=== PATIENT | female | born 1955 | race Caucasian/White ===

== ENCOUNTER 2017-02-19 09:18 | Inpatient (IN) | payer OTHER ==
[~2017-02-19] VITALS: Ht 172.7 cm; Wt 64.7 kg
[2017-02-19] MEDS ORDERED: SODIUM CHLORIDE 0.9% 1,000 ML IV ONE (09:57)
[2017-02-19] MEDS ORDERED: ONDANSETRON 2MG/ML, 2ML IVPush ONE (10:00)
[2017-02-19] MEDS ORDERED: SODIUM CHLORIDE FLUSH 10ML SYR IVF ONE (10:00)
[2017-02-19] MEDS ORDERED: SODIUM CHLORIDE 0.9% 1,000ML IVBOLUS ONE (10:00)
[2017-02-19] MEDS ORDERED: ONDANSETRON 2MG/ML, 2ML ONE (10:19)
[2017-02-19 10:32] LABS: ASPARTATE AMINO TRANSFERASE 8 U/L (15-37); BLOOD UREA NITROGEN 26 mg/dL (7-18)
[2017-02-19] MEDS ORDERED: POTASSIUM CHLORIDE 40 MEQ in SODIUM CHLORIDE 0.9% 1,000 ML IV ONE (10:43)
[2017-02-19] MEDS ORDERED: NS + 40MEQ KCL 1,000 ML IV ONE (10:47)
[2017-02-19] MEDS ORDERED: POTASSIUM CHLORIDE 20 MEQ in SODIUM CHLORIDE 0.9% 1,000 ML IV ONE ×2 (12:44→15:00)
[2017-02-19] MEDS ORDERED: SODIUM CHLORIDE FLUSH 10ML SYR IVF PRN (13:00)
[2017-02-19] MEDS ORDERED: NS + 20MEQ KCL 1,000 ML IV ONE (13:32)
[2017-02-19] MEDS ORDERED: SODIUM CHLORIDE 0.9% 1,000 ML IV SCH (13:43)
[2017-02-19] MEDS ORDERED: PROMETHAZINE 25 MG/ML, 1ML IM PRN (14:00)
[2017-02-19] MEDS ORDERED: BISACODYL 10 MG SUPP PR PRN (14:00)
[2017-02-19] MEDS ORDERED: DOCUSATE 100 MG CAPSULE PO PRN (14:00)
[2017-02-19] MEDS ORDERED: POLYETHYLENE GLYCOL 17 GM PACKET PO PRN (14:00)
[2017-02-19 15:22] LABS: BLOOD UREA NITROGEN 22 mg/dL (7-18)
[2017-02-19 15:47] VITALS: BP 123/88
[2017-02-19] MEDS ORDERED: POTASSIUM CHLORIDE 20 MEQ TAB.ER.PRT PO ONE (16:30)
[2017-02-19] MEDS: ENOXAPARIN 40 MG/0.4 ML SQ SCH (17:03)
[2017-02-19] MEDS: CEFTRIAXONE PMX 1GM/50ML 50 ML IV SCH (17:46)
[2017-02-19] MEDS: ROPINIROLE 1MG TABLET PO PRN (17:47)
[2017-02-19 20:35] VITALS: BP 137/85
[2017-02-19] MEDS: TRAZODONE 100MG TABLET PO PRN (21:47)
[2017-02-19] MEDS: ONDANSETRON 2MG/ML, 2ML IVPush PRN (22:10)
[2017-02-20] VITALS (7 sets, daily range): BP systolic 147–177; BP diastolic 79–101
[2017-02-20] MEDS: NS + 20MEQ KCL 1,000 ML IV SCH ×2 (00:46→09:44)
[2017-02-20] MEDS: ONDANSETRON 2MG/ML, 2ML IVPush PRN ×2 (05:59→17:56)
[2017-02-20 06:25] LABS: BLOOD UREA NITROGEN 17 mg/dL (7-18)
[2017-02-20] MEDS: SODIUM CHLORIDE 0.9% 1,000 ML IV SCH ×2 (13:30→23:30)
[2017-02-20] MEDS ORDERED: SODIUM PHOSPHATE 20 MMOL in SODIUM CHLORIDE 0.9% 500 ML IV ONE (14:00)
[2017-02-20] MEDS: ENOXAPARIN 40 MG/0.4 ML SQ SCH (14:17)
[2017-02-20] MEDS: CEFTRIAXONE PMX 1GM/50ML 50 ML IV SCH (14:26)
[2017-02-20] MEDS: ROPINIROLE 1MG TABLET PO PRN (16:30)
[2017-02-20] MEDS: ACETAMINOPHEN 325 MG TABLET PO PRN (17:58)
[2017-02-20] MEDS ORDERED: hydrALAzine 20 MG/ML, 1ML IV ONE (20:30)
[2017-02-20] MEDS ORDERED: ENALAPRILAT 1.25 MG/ML, 2ML IV ONE (23:30)
[2017-02-21 00:01] VITALS: BP 157/87
[2017-02-21] MEDS: TRAZODONE 100MG TABLET PO PRN ×2 (01:28→20:16)
[2017-02-21] MEDS: ACETAMINOPHEN 325 MG TABLET PO PRN (01:29)
[2017-02-21 04:22] VITALS: BP 152/78
[2017-02-21 05:09] LABS: BLOOD UREA NITROGEN 8 mg/dL (7-18)
[2017-02-21 07:24] VITALS: BP 118/80
[2017-02-21] MEDS ORDERED: POTASSIUM CHLORIDE 20 MEQ TAB.ER.PRT PO ONE (10:30)
[2017-02-21] MEDS: ONDANSETRON 2MG/ML, 2ML IVPush PRN ×2 (11:47→20:16)
[2017-02-21 13:23] VITALS: BP 152/88
[2017-02-21] MEDS: CEFTRIAXONE PMX 1GM/50ML 50 ML IV SCH (14:30)
[2017-02-21] MEDS: ENOXAPARIN 40 MG/0.4 ML SQ SCH (14:45)
[2017-02-21] MEDS: SODIUM CHLORIDE 0.9% 1,000 ML IV SCH (16:04)
[2017-02-21] MEDS: ROPINIROLE 1MG TABLET PO PRN (17:32)
[2017-02-21 19:11] VITALS: BP 160/91
[2017-02-21 20:59] VITALS: BP 124/86
[2017-02-22] VITALS (9 sets, daily range): BP systolic 146–177; BP diastolic 81–98
[2017-02-22] MEDS: SODIUM CHLORIDE 0.9% 1,000 ML IV SCH (03:26)
[2017-02-22] MEDS ORDERED: POTASSIUM CHLORIDE 20 MEQ TAB.ER.PRT PO ONE (09:00)
[2017-02-22] MEDS: POTASSIUM CHLORIDE 10 MEQ in SODIUM CHLORIDE 0.9% 1,000 ML IV SCH ×2 (12:28→22:42)
[2017-02-22] MEDS: ROPINIROLE 1MG TABLET PO PRN (16:15)
[2017-02-22] MEDS: ENOXAPARIN 40 MG/0.4 ML SQ SCH (16:15)
[2017-02-22] MEDS: ONDANSETRON 2MG/ML, 2ML IVPush PRN (17:32)
[2017-02-22] MEDS: ACETAMINOPHEN 325 MG TABLET PO PRN (19:46)
[2017-02-22] MEDS: TRAZODONE 100MG TABLET PO PRN (19:46)
[2017-02-22] MEDS: DIPHENHYDRAMINE 50 MG CAPSULE PO PRN (19:46)
[2017-02-22] MEDS ORDERED: ENALAPRILAT 1.25 MG/ML, 2ML IV PRN ×2 (22:00→23:30)
[2017-02-22] MEDS ORDERED: ENALAPRILAT 1.25 MG/ML, 2ML IV ONE (23:30)
[2017-02-23 03:06] VITALS: BP 146/85
[2017-02-23 03:34] VITALS: BP 134/87
[2017-02-23 06:23] LABS: BLOOD UREA NITROGEN 13 mg/dL (7-18)
[2017-02-23] MEDS: METRONIDAZOLE PMX 500MG/100ML 100 ML IV SCH ×2 (08:47→15:43)
[2017-02-23 08:51] VITALS: BP 149/82
[2017-02-23] MEDS: ENOXAPARIN 40 MG/0.4 ML SQ SCH (15:43)
[2017-02-23 15:54] VITALS: BP 138/76
[2017-02-23 17:13] VITALS: BP 117/78
[2017-02-23 19:50] VITALS: BP 130/85
[2017-02-23] MEDS: ROPINIROLE 1MG TABLET PO PRN (21:09)
[2017-02-23] MEDS: TRAZODONE 100MG TABLET PO PRN (21:09)
[2017-02-23] MEDS: DIPHENHYDRAMINE 50 MG CAPSULE PO PRN (21:09)
[2017-02-23] MEDS: ONDANSETRON 2MG/ML, 2ML IVPush PRN (21:10)
[2017-02-24] MEDS: METRONIDAZOLE PMX 500MG/100ML 100 ML IV SCH ×3 (00:16→17:33)
[2017-02-24 04:28] VITALS: BP 128/82
[2017-02-24 06:02] LABS: BLOOD UREA NITROGEN 11 mg/dL (7-18)
[2017-02-24 08:10] VITALS: BP 105/72
[2017-02-24] MEDS: LACTOBACILLUS CHEW TABLET PO SCH ×3 (13:04→19:52)
[2017-02-24] MEDS: VANCOMYCIN 50 MG/ML ORAL SUSP PO SCH ×2 (13:05→17:33)
[2017-02-24 13:54] VITALS: BP 108/59
[2017-02-24] MEDS: ENOXAPARIN 40 MG/0.4 ML SQ SCH (15:31)
[2017-02-24] MEDS: CHOLESTYRAMINE LIGHT 4GM PACKET PO SCH (15:31)
[2017-02-24] MEDS: ACETAMINOPHEN 325 MG TABLET PO PRN (15:46)
[2017-02-24 20:00] VITALS: BP 108/64
[2017-02-24] MEDS: TRAZODONE 100MG TABLET PO PRN (21:12)
[2017-02-24] MEDS: ROPINIROLE 1MG TABLET PO PRN (21:36)
[2017-02-25] MEDS: VANCOMYCIN 50 MG/ML ORAL SUSP PO SCH ×4 (00:55→17:26)
[2017-02-25] MEDS: METRONIDAZOLE PMX 500MG/100ML 100 ML IV SCH ×3 (01:58→17:24)
[2017-02-25 02:00] VITALS: BP 123/65
[2017-02-25 06:27] LABS: BLOOD UREA NITROGEN 12 mg/dL (7-18)
[2017-02-25 07:48] VITALS: BP 122/81
[2017-02-25] MEDS: LACTOBACILLUS CHEW TABLET PO SCH ×3 (08:37→20:49)
[2017-02-25] MEDS: CHOLESTYRAMINE LIGHT 4GM PACKET PO SCH (10:10)
[2017-02-25] MEDS: ENOXAPARIN 40 MG/0.4 ML SQ SCH (13:52)
[2017-02-25 14:13] VITALS: BP 121/82
[2017-02-25 19:04] VITALS: BP 111/78
[2017-02-25] MEDS: TRAZODONE 100MG TABLET PO PRN (20:49)
[2017-02-25] MEDS: ROPINIROLE 1MG TABLET PO PRN (21:44)
[2017-02-26] MEDS: VANCOMYCIN 50 MG/ML ORAL SUSP PO SCH ×3 (00:39→12:31)
[2017-02-26 01:01] VITALS: BP 113/81
[2017-02-26 01:16] LABS: HDL CHOLESTEROL 56 mg/dL (>39); HDL-P (TOTAL) 24.2 umol/L (>=30.5); LDL CHOLESTEROL CALC 49 mg/dL (0-99); LDL SIZE 20.6 nm (>20.5); NON-HDL CHOLESTEROL 62 mg/dL (0-129); SMALL LDL-P <90 nmol/L (<=527); TRIGLYCERIDES 65 mg/dL (0-149)
[2017-02-26] MEDS: ACETAMINOPHEN 325 MG TABLET PO PRN (01:32)
[2017-02-26] MEDS: METRONIDAZOLE PMX 500MG/100ML 100 ML IV SCH ×2 (01:33→09:30)
[2017-02-26 03:06] LABS: LDL-P 491 nmol/L (<1000); LP-INSULIN RESISTANCE SCORE <25 (<=45)
[2017-02-26 07:46] VITALS: BP 133/86
[2017-02-26] MEDS: CHOLESTYRAMINE LIGHT 4GM PACKET PO SCH (08:53)
[2017-02-26] MEDS: LACTOBACILLUS CHEW TABLET PO SCH (09:00)
[2017-02-26] MEDS: ONDANSETRON 2MG/ML, 2ML IVPush PRN (09:30)
[2017-02-26] MEDS ORDERED: METH10TA6 PO ×3 (10:09→11:52)
[2017-02-26] MEDS ORDERED: CHOL239. PO ×3 (10:09→11:52)
[2017-02-26] MEDS ORDERED: ACID1TAB7 PO ×3 (10:09→11:52)
[2017-02-26] MEDS ORDERED: VANC250C2 PO ×2 (10:09→10:12)
[2017-02-26] MEDS ORDERED: METR500T PO ×2 (11:44→11:52)
[2017-02-26] MEDS ORDERED: ONDA4TAB7 PO (11:52)
[2017-02-26 13:35] VITALS: BP 132/74
[2017-02-26] MEDS: ENOXAPARIN 40 MG/0.4 ML SQ SCH (14:00)
== END 2017-02-26 15:44 | disposition home or self-care (01) | DRG 438 ==
LOC: ED 11:31 → EDIP 12:44 → 4EST 15:27
PROVIDERS: ADMIT Internal Medicine; ATTEND Internal Medicine
DX: K85.90 Acute pancreatitis without necrosis or infection, unspecified (principal); E43 Unspecified severe protein-calorie malnutrition; A04.7 Enterocolitis due to Clostridium difficile; F11.23 Opioid dependence with withdrawal; R26.2 Difficulty in walking, not elsewhere classified; N30.90 Cystitis, unspecified without hematuria; B96.20 Unspecified Escherichia coli [E. coli] as the cause of diseases classified elsewhere; E80.4 Gilbert syndrome; E05.90 Thyrotoxicosis, unspecified without thyrotoxic crisis or storm; Z66 Do not resuscitate; F17.200 Nicotine dependence, unspecified, uncomplicated; E87.6 Hypokalemia; G25.81 Restless legs syndrome; G89.4 Chronic pain syndrome; Z68.21 Body mass index [BMI] 21.0-21.9, adult; Z72.89 Other problems related to lifestyle; Z80.8 Family history of malignant neoplasm of other organs or systems; Z80.42 Family history of malignant neoplasm of prostate; Z83.3 Family history of diabetes mellitus; Z88.8 Allergy status to other drugs, medicaments and biological substances; Z71.3 Dietary counseling and surveillance; Z78.9 Other specified health status
CPT/HCPCS: 36415; 76700; 80048; 80053; 80061; 81001; 82607; 83690; 83704; 83735; 84100; 84439; 84443; 84478; 84481; 85025; 87040; 87077; 87086; 87186; 87324; 96361; 96365; 96366; 96375; J0696; J1650; J2405; J3370; J3480; J0360; J7030; J7040

== ENCOUNTER 2017-07-17 18:02 | Emergency (ER) | payer OTHER ==
[~2017-07-17] VITALS: Ht 172.7 cm; Wt 60.0 kg
[~2017-07-17 18:02] MED LIST: ACID1TAB7 PO; CHOL239. PO; METH10TA6 PO; METR500T PO; ONDA4TAB7 PO; VANC250C2 PO
[2017-07-17 18:53] VITALS: BP 126/75
[2017-07-17] MEDS ORDERED: PLEASE ENTER HEIGHT AND WEIGHT MC SCH (19:00)
[2017-07-17] MEDS ORDERED: PLEASE ENTER ALLERGIES MC SCH ×2 (19:00)
[2017-07-17] MEDS ORDERED: LIDOCAINE 1%, 20ML SQ ONE (19:00)
[2017-07-17] MEDS ORDERED: LIDOCAINE 1%, 20ML ONE (19:21)
== END 2017-07-17 20:21 | disposition home or self-care (01) ==
LOC: ED 20:10
DX: L03.114 Cellulitis of left upper limb (principal); Z87.891 Personal history of nicotine dependence
CPT/HCPCS: 10061; 99284